=== PATIENT | male | born 1960 | race Caucasian/White ===

== ENCOUNTER 2021-01-09 08:41 | Observation (INO) | payer BC ==
[~2021-01-09] VITALS: Ht 175.3 cm; Wt 89.8 kg
[2021-01-09 08:42] VITALS: BP 140/89
[2021-01-09] MEDS ORDERED: ASA81BEC PO (09:21)
[2021-01-09] MEDS ORDERED: VYZULTA5 ML OPHTHALMIC (09:21)
[2021-01-09] MEDS ORDERED: BRILINTA90 MG PO (09:21)
[2021-01-09] MEDS ORDERED: DULOXETINE HCL60 MG PO (09:21)
[2021-01-09 09:27] LABS: ABSOLUTE NEUTROPHILS 3.5 thou/uL (1.4-8.2); BASOPHILS 1.1 % (0.0-2.0); EOSINOPHILS 3.2 % (0.0-3.0); HEMATOCRIT 46.5 % (42.0-52.0); HEMOGLOBIN 15.8 gm/dL (14.0-18.0); LYMPHOCYTES 24.9 % (24.0-44.0); MCH 30.6 pg (26.0-34.0); MCV 90.1 fL (80.0-100.0); MONOCYTES 7.6 % (1.0-8.0); PLATELET COUNT 232 thou/uL (150-400); POLYS 63.2 % (36.0-66.0); RBC 5.16 mil/uL (4.50-6.00); RDW 13.4 % (10.5-14.5); WBC 5.6 thou/uL (4.0-11.0)
[2021-01-09 09:38] LABS: ANION GAP 8 mmol/L (7-16); BUN 7 mg/dL (7-18); CALCIUM 8.9 mg/dL (8.5-10.1); CHLORIDE 102 mmol/L (98-107); CO2 25 mmol/L (21-32); CREATININE 0.9 mg/dL (0.7-1.3); GLUCOSE 130 mg/dL (74-106); POTASSIUM 4.1 mmol/L (3.5-5.1); SODIUM 135 mmol/L (136-145)
[2021-01-09 09:47] LABS: ALBUMIN 3.8 g/dL (3.4-5.0); SGOT 22 U/L (15-37); SGPT 36 U/L (16-63); TOTAL BILIRUBIN 0.4 mg/dL (0.2-1.0); TOTAL PROTEIN 6.8 g/dL (6.4-8.2); TROPONIN-I <0.06 ng/mL (<0.06)
[2021-01-09 09:57] LABS: APTT 26.9 Seconds (24.5-32.8); D-DIMER 0.6 ug/mLFEU (0.19-0.50); INR 0.94; PROTIME 10.3 Seconds (10.5-12.1)
[2021-01-09] MEDS ORDERED: MAPAP500 MG PO (11:17)
--- NOTE | 2021-01-09 12:00 | EKG ---
[address] [address] ELECTROCARDIOGRAM REPORT Name: FIDELINA MATTHEW Room #: REG Milagros#: [id number] Admission: 01/09/21 Attend Phys: Discharge: Date of : 62 Report #: [id number] [facility] ED Test Date: 2021-01-09 Test Time: 08:49:25 Pat Name: FIDELINA MATTHEW Department: Room: Gender: M Machine [employer] Red[employer]: KF : 1960 Requested By: Rajiv Diop Order Number: [id number] MD: Wisam Major Measurements Intervals [place] Rate: 95 P: MT: QRS: 13 QRSD: 102 T: 33 QT: 343 QTc: 431 Interpretive Statements Atrial fibrillation No previous ECG available for comparison Electronically Signed On 01-09-2021 12:00:25 CDT by Wisam Major [email or web address] <ELECTRONICALLY SIGNED> By: Wisam Major MD, [facility] 01/09/21 1200 0849 0849 Wisam Major MD, FACC /EPI
[2021-01-09 13:35] VITALS: BP 149/86
--- NOTE | 2021-01-09 15:11 | NUR ---
PATIENT DOES NOT HAVE A PHARMACY HE USES. UNABLE TO ENTER IN [place].
--- NOTE | 2021-01-09 16:36 | NUR ---
PATIENT ADMITTED FROM ED, WENT STRAIGHT TO [facility]. NO INTERVENTIONS DONE. RIGHT GROIN SITE C/D/I. OFF BEDREST AT 1630. IV FLUIDS INFUSING. PATIENT HAS NEW ONSET AFIB. PLAN TO STAY OVER NOC AND D/C IN AM. AFIB RATES CONTROLLED. PATIENT STEADY ON FEET. AGREEABLE TO USING CALL LIGHT WHEN NEEDED.
--- NOTE | 2021-01-09 17:00 | CATHLAB ---
[facility] [place] [address] INVASIVE PROCEDURE REPORT Name: FEDERICO MATTHEW Room #: 213-P ADM Catherine M.R.#: [id number] Admission: 01/09/21 Attend Phys: Minerva Torres MD Discharge: Date of : 62 Report #: [id number] THIS REPORT FOR: cc: FAM - No family physician/PCP FAM - No family physician/PCP Yury Doan MD ~ APPROVED REPORT Study performed: 01/09/2021 13:09:13 Patient Details Patient Status: ED Room #: The patient is a 60 year-old male Event Personnel Yury Doan Ichthyology Teacher, Magnolia Gonzalez RTR Monitor, Adriana Mina RTR ScrubRosie Ashley RN application dba Performed Art Access - R femoral artery* Left Heart Cath w/or w/o Coronaries [id number] [facility] [address] Initial Mod Sed Same Phys/QHP Gr5y 555887 54511 Mod Sed Same Phys/QHP Ea 429121 Hemostasis with Manual pressure Indication Atrial fibrillation, Dyspnea, Unstable angina , Chest pain Risk Factors Cerebrovascular Disease, Hypercholesterolemia, Coronary Artery DiseaseHypertension, Tobacco History () Previous Procedures/Diagnoses Previous PCI Procedure Narrative The Right Groin^ was infiltrated with 1% Lidocaine subcutaneous anesthesia. A TalkrayNACLE 4FR Sheath #[id number] sheath was inserted into the RFA^. Coronary angiography was performed using coronary diagnostic catheters. The right coronary system was accessed and visualized with a JR4 catheter. The left coronary system was accessed and visualized with a JL4 catheter. The left ventricle was accessed and visualized with a PIGTAIL catheter. Left ventriculogram was performed in 30 degree projection. Hemostasis was obtained with manual pressure following sheath removal without any complications. [facility] [address] [place] [address] [place] [address] INVASIVE PROCEDURE REPORT Name: FEDERICO MATTHEW Room #: 213-P [facility].#: [id number] Admission: 01/09/21 Attend Phys: Prudencio Lau Discharge: Date of : 62 Report #: [id number] The patient tolerated the procedure well and there were no complications associated with the procedure. There was no hematoma. Intraoperative Conscious Sedation Sedation start time: 13:55 Case end Time: 14:29 Fentanyl 100 mcg Versed 2 mg Fluoro Time: 2.27 minutes Dose: DAP 4300.20 cGycm2 542 mGy Contrast Type and Amount: Visipaque 108 ml Coronary Angiography The patient's coronary anatomy is right dominant. Diagnostic Cath Left Main The left main artery is a large-caliber vessel, patent with no flow-limiting lesions. LAD The LAD is a moderate-sized caliber vessel, traverses the anterior wall and wraps around the apex. There is a long stent within the mid segment of the LAD. In the proximal portion of this stented area, there is mild to moderate restenosis, 40%. Diagonal 1 There is a moderate-sized caliber vessel, with mild disease in the midsegment. Diagonal 2 This is a small caliber vessel, with no flow-limiting lesions. Circumflex There is a stent in the mid segment, patent with minimal restenosis. OM1 There is a moderate-sized caliber vessel with a high takeoff from the left circumflex artery. This vessel is patent with no flow-limiting lesions. OM2 This is a small to moderate-sized caliber vessel, patent with no flow-limiting lesions. Right Coronary The RCA is a dominant vessel. There is a patent stent in the midsegment with mild restenosis, 20%. R PDA This is a small to moderate-sized caliber vessel, patent with no flow-limiting lesions. RPLV This is a moderate-sized caliber vessel, patent with no flow-limiting lesions. Left Ventriculography The left ventricle is normal in size with normal contractility. The left ventricular ejection fraction is estimated to be >55%. [facility] [address] [place] [address] INVASIVE PROCEDURE REPORT Name: MATTHEWFEDERICO Room #: 213-P [facility] IN M.R.#: [id number] Admission: 01/09/21 Attend Phys: Prudencio Lau Discharge: Date of : 62 Report #: [id number] Hemodynamics The aortic pressure is 131/80 mmHg with a mean of 102 mmHg. The left ventricular pressure is 135/9 mmHg with a mean of mmHg. The left ventricular end diastolic pressure is 24 mmHg. Conclusion 1. There is mild to moderate restenosis in the mid LAD stent. 2. There is a patent stent in the left circumflex artery with minimal restenosis. 3. There is a patent stent in the mid RCA segment with mild restenosis. 4. 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 5. There is normal LV systolic function. 6. Recommend aggressive risk factor management. <ELECTRONICALLY SIGNED> By: Yury Doan MD 01/09/211699 99 99 Yury Doan MD /INF
[2021-01-09 19:26] VITALS: BP 148/67
[2021-01-09 23:40] VITALS: BP 105/58
[2021-01-10 04:50] VITALS: BP 110/70
--- NOTE | 2021-01-10 05:00 | NUR ---
SLEPT MOST OF SHIFT. UP AD GOLDEN IN ROOM WITH STEADY GAIT. RIGHT GROIN DRESSING C/D/I, NO BLEEDING OR HEMOTOMA. PLANS FOR DISCHARGE HOME TODAY. NO FURTHER COMPLAINTS OF NAUSEA. CONTINUE TO ASSES.
[2021-01-10 06:05] LABS: HEMATOCRIT 45.6 % (42.0-52.0); HEMOGLOBIN 15.5 gm/dL (14.0-18.0); MCH 30.7 pg (26.0-34.0); MCV 90.4 fL (80.0-100.0); RBC 5.05 mil/uL (4.50-6.00); RDW 13.3 % (10.5-14.5); WBC 7.4 thou/uL (4.0-11.0)
[2021-01-10 06:15] LABS: CALCIUM 8.7 mg/dL (8.5-10.1); CREATININE 0.8 mg/dL (0.7-1.3); POTASSIUM 3.9 mmol/L (3.5-5.1)
[2021-01-10 07:00] VITALS: BP 112/68
[2021-01-10 07:45] VITALS: BP 112/68
[2021-01-10] MEDS ORDERED: LIPITOR40 MG PO (07:59)
[2021-01-10] MEDS ORDERED: COREG6.25 MG PO (07:59)
--- NOTE | 2021-01-10 10:12 | 2DMMODE ---
[facility] [place] [address] 2 D/M-MODE ECHOCARDIOGRAM Name: FEDERICO MATTHEW Room #: 213-P ADM Catherine M.R.#: [id number] Admission: 01/09/21 Attend Phys: Minerva Torres MD Discharge: Date of : 62 Report #: [id number] THIS REPORT FOR: cc: FAM - No family physician/PCP FAM - No family physician/PCP Yury Doan MD ~ APPROVED REPORT Study performed: 01/10/2021 09:02:11 EXAM: Comprehensive 2D, Doppler, and color-flow Echocardiogram Patient Location: Bedside Room #: 213 Status: on-call BSA: 2.06 HR: 81 bpm BP: 112/68 mmHg Rhythm: Atrial Fibrillation Other Information Study Quality: Adequate Indications Atrial Fibrillation CAD Chest Pain 2D Dimensions RVDd: 27.79 mm IVSd: 13.13 (7-11mm) LVOT Diam: 22.74 (18-24mm) LVDd: 42.98 mm PWd: 13.57 (7-11mm) Ascending Ao: 34.00 (22-36mm) LVDs: 31.62 (25-40mm) Aortic Root: 32.01 mm IVC: 14.00 mm Volumes Left Atrial Volume (Systole) Single Plane 4CH: 53.92 mL Single Plane 2CH: 75.00 mL LA ESV Index: 34.00 mL/m2 Aortic Valve AoV Peak Remi.: 1.06 m/s AO Peak Gr.: 4.50 mmHg LVOT Max P.94 mmHg LVOT Max V: 0.70 m/s [facility] [address] [place] [address] 2 D/M-MODE ECHOCARDIOGRAM Name: FEDERICO MATTHEW Room #: 213-P ADM IN M.R.#: [id number] Admission: 01/09/21 Attend Phys: Prudencio Lau Discharge: Date of : 62 Report #: [id number] SUSAN Vmax: 2.67 cm2 Mitral Valve MV Decel. Time: 146.17 ms MV E Max Remi.: 0.88 m/s IVRT: 112.46 ms Pulmonary Valve PV Peak Remi.: 0.75 m/s PV Peak Gr.: 2.26 mmHg Tricuspid Valve RAP Estimate: 5.00 mmHg Left Ventricle The left ventricle is normal size. There is normal LV segmental wall motion. Mild concentric left ventricular hypertrophy. The left ventricular systolic function is normal. The left ventricular ejection fraction is within the normal range. LVEF is 55%. This study is not technically sufficient to allow evaluation of the LV diastolic function due to atrial fibrillation. Right Ventricle The right ventricle is normal size. The right ventricular systolic function is normal. Atria Left atrium is at the upper limits of normal. The right atrium size is normal. Aortic Valve The aortic valve is normal in structure. Trace to mild aortic regurgitation. There is no aortic valvular stenosis. Mitral Valve The mitral valve is normal in structure. There is no mitral valve regurgitation noted. No evidence of mitral valve stenosis. Tricuspid Valve The tricuspid valve is normal in structure. There is no tricuspid valve regurgitation noted. Unable to assess PA pressure. Pulmonic Valve The pulmonary valve is normal in structure. Mild pulmonic regurgitation. Great Vessels [facility] [address] [place] [address] 2 D/M-MODE ECHOCARDIOGRAM Name: FEDERICO MATTHEW Room #: 213-P ADM IN .R.#: [id number] Admission: 01/09/21 Attend Phys: Prudencio Lau Discharge: Date of : 62 Report #: [id number] The aortic root is normal in size. IVC is normal in size and collapses >50% with inspiration. Pericardium There is no pericardial effusion. <Conclusion> The left ventricle is normal size. Mild concentric left ventricular hypertrophy. The left ventricular systolic function is normal. The right ventricle is normal size. Left atrium is at the upper limits of normal. Trace to mild aortic regurgitation. There is no mitral valve regurgitation noted. <ELECTRONICALLY SIGNED> By: Yury Doan MD 01/10/21 1012 1012 1012 Yury Doan MD /INF
[2021-01-10] MEDS ORDERED: ELIQUIS5 MG PO (10:35)
[2021-01-10 10:54] VITALS: BP 112/68
--- NOTE | 2021-01-10 11:20 | NUR ---
PT CARE ASSUMED AT 0700. ASSESSMENTS CHARTED. MEDICATIONS CHARTED. RFA IV - S/L. ATRIAL FIBRILLATION. CPAP AT HS (PT'S OWN). RT GROIN, NO INTERVENTION. C/D/I. PT WALKED AROUND UNIT, UP AD GOLDEN. PT DISCHARGED TO HOME. DISCHARGE PAPERWORK SIGNED. TELEMETRY D/C'D. IV D/C'D.
== END 2021-01-10 11:25 | disposition home or self-care (01) ==
LOC: ER 08:41 → EROBS 12:37 → 2N 12:37
PROVIDERS: Emergency Medicine; Internal Medicine Cardiovascular Disease; ADMIT Hospitalist; ATTEND Hospitalist
DX: I25.110 Atherosclerotic heart disease of native coronary artery with unstable angina pectoris (principal); R55 Syncope and collapse; Z20.822 Contact with and (suspected) exposure to COVID-19; I10 Essential (primary) hypertension; E78.5 Hyperlipidemia, unspecified; J44.9 Chronic obstructive pulmonary disease, unspecified; G47.33 Obstructive sleep apnea (adult) (pediatric); D68.51 Activated protein C resistance; I48.91 Unspecified atrial fibrillation; G45.9 Transient cerebral ischemic attack, unspecified; H40.9 Unspecified glaucoma; F17.210 Nicotine dependence, cigarettes, uncomplicated; F12.90 Cannabis use, unspecified, uncomplicated; Z98.890 Other specified postprocedural states; Z90.49 Acquired absence of other specified parts of digestive tract